=== PATIENT | male | born 1980 | race Caucasian/White ===

== ENCOUNTER 2016-08-29 18:20 | Emergency (ER) | payer SELFPAY ==
[~2016-08-29] VITALS: Ht 177.8 cm; Wt 100.0 kg
[~2016-08-29 18:20] MED LIST: PENI500T PO; TYLE3 PO; Z.0.NO CURRENT MEDS
[2016-08-29 18:21] VITALS: BP 133/85; PULSE 77; RESP 15; TEMP 98.2; O2SAT 95
== END 2016-08-29 19:49 | disposition left against medical advice (07) ==
LOC: NED 18:20
DX: R68.89 Other general symptoms and signs (principal)
CPT/HCPCS: 99281